=== PATIENT | male | born 2000 | race African-American/Black ===

== ENCOUNTER 2022-04-26 09:48 | Emergency (ER) | payer BC ==
[~2022-04-26] VITALS: Ht 188 cm; Wt 75.0 kg
[2022-04-26 09:56] VITALS: BP 133/86
[2022-04-26] MEDS ORDERED: KETOROLAC 30MG/ML VIAL IV STA (10:24)
[2022-04-26] MEDS ORDERED: ONDANSETRON HCL 4MG/2ML INJ IV STA (10:24)
[2022-04-26] MEDS ORDERED: SODIUM CHLORIDE 0.9% 1,000 ML IV ONE ×2 (10:30→11:15)
[2022-04-26 10:32] LABS: HEMATOCRIT. 44.8 % (42.0-52.0); MEAN CORPUSCULAR HEMOGLOBIN 27.9 pg (28.0-32.0); MEAN CORPUSCULAR VOLUME 83.4 fL (80.0-94.0); MEAN PLATELET VOLUME 8.8 fl (7.4-10.4); PLATELET 302 x1000/uL (130-400); RED BLOOD CELL COUNT 5.38 mill/uL (4.7-6.1); RED CELL DISTRIBUTION WIDTH 12.5 % (11.6-14.6)
[2022-04-26 10:35] LABS: CLARITY URINE CLEAR (CLEAR); COLOR URINE YELLOW (YELLOW); KETONES URINE TRACE (NEGATIVE); LEUKOCYTE ESTERASE URINE NEGATIVE (NEGATIVE); NITRITE URINE NEGATIVE (NEGATIVE); OCCULT BLOOD URINE NEGATIVE (NEGATIVE); PROTEIN URINE TRACE (NEGATIVE); SPECIFIC GRAVITY URINE 1.022 (1.005-1.030); UROBILINOGEN URINE 0.2 E.U./dL (0.2-1.0)
[2022-04-26 10:39] LABS: CHLORIDE 106 mEq/L (98-107)
[2022-04-26 10:59] LABS: PLATELET ESTIMATE NORMAL
[2022-04-26] MEDS ORDERED: ONDA4TAB50 MT (11:55)
== END 2022-04-26 12:30 | disposition home or self-care (01) ==
LOC: ER 09:48
DX: E86.0 Dehydration (principal)
CPT/HCPCS: 36415; 80053; 81003; 83690; 85025; 96361; 96374; 96375; 99284; J1885; J2405; J7030